=== PATIENT | female | born 1960 | race African-American/Black ===

== ENCOUNTER 2017-08-07 11:10 | Day surgery (SDC) | payer BC ==
[2017-08-07 11:49] VITALS: BMI 28.9
[2017-08-07] MEDS ORDERED: PROPOFOL 20 ML ONE ×2 (13:39)
[2017-08-07 14:21] VITALS: TEMP 97.9
[2017-08-07 15:42] VITALS: BP 107/75; PULSE 65
== END 2017-08-07 15:42 | disposition home or self-care (01) ==
LOC: JASU-ENDO 11:10
PROVIDERS: ATTEND Internal Medicine Gastroenterology
PROC: 0DJD8ZZ Inspection of Lower Intestinal Tract, Via Natural or Artificial Opening Endoscopic (ICD-10-PCS; principal; 2017-08-07 11:30)
DX: Z12.11 Encounter for screening for malignant neoplasm of colon (principal); K64.8 Other hemorrhoids
CPT/HCPCS: 82962